=== PATIENT | female | born 1995 | race Caucasian/White ===

== ENCOUNTER 2022-12-12 20:20 | Emergency (ER) | payer BC ==
[~2022-12-12] VITALS: Ht 167.6 cm; Wt 65.8 kg
[2022-12-12 20:32] VITALS: BP_SYST 124
[2022-12-12 21:02] LABS: BILIRUBIN,URINE NEGATIVE (NEGATIVE); BLOOD, URINE NEGATIVE (NEGATIVE); CLARITY/URINE CLEAR (CLEAR); COLOR,URINE YELLOW (YELLOW); GLUCOSE,URINE NEGATIVE (NEGATIVE); KETONES,URINE NEGATIVE (NEGATIVE); LEUKOCYTE ESTERASE ,URINE NEGATIVE (NEGATIVE); NITRITE, URINE NEGATIVE (NEGATIVE); PROTEIN URINE NEGATIVE (NEGATIVE); UROBILINOGEN,URINE 0.2 (0.2-1.0)
[2022-12-12 21:05] LABS: HCG,QUAL RESULT NEGATIVE (NEGATIVE)
[2022-12-12] MEDS ORDERED: IBUP-1969 PO (22:13)
[2022-12-12] MEDS ORDERED: METH-634 PO (22:13)
[2022-12-12 22:19] VITALS: BP_SYST 124
== END 2022-12-12 22:19 | disposition home or self-care (01) ==
LOC: SED 20:20
DX: M54.50 Low back pain, unspecified (principal); R10.9 Unspecified abdominal pain; Z79.899 Other long term (current) drug therapy
CPT/HCPCS: 81003; 81025; 84703; 99283